=== PATIENT | male | born 1985 | race Caucasian/White ===

== ENCOUNTER 2024-09-05 17:44 | Emergency (ER) | payer SELFPAY ==
[2024-09-05 18:02] VITALS: BP 123/81; PULSE 105; RESP 20; TEMP 36.8; O2SAT 94; BMI 39.1
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
[2024-09-05] MEDS: METHOCARBAMOL 500MG TABLET 500 MG PO (19:12)
[2024-09-05] MEDS: ACETAMINOPHEN 500MG TAB 1000 MG PO (19:12)
[2024-09-05] MEDS: KETOROLAC 10MG TABLET 10 MG PO (19:12)
[2024-09-05 21:06] VITALS: BP 122/87; PULSE 87; RESP 20; TEMP 36.7; O2SAT 98
== END 2024-09-05 21:20 | disposition home or self-care (01) ==
PROVIDERS: Emergency Provider Emergency Medicine
DX: S80.11XA Contusion of right lower leg, initial encounter (principal); M79.604 Pain in right leg; V29.408A Other motorcycle driver injured in collision with unspecified motor vehicles in traffic accident, initial encounter; Y92.410 Unspecified street and highway as the place of occurrence of the external cause
CPT/HCPCS: 73562; 73590; 73610; 73620; 99284

== ENCOUNTER 2025-02-25 21:41 | Emergency (ER) | payer SELFPAY ==
[2025-02-25] VITALS (9 sets, daily range): BP systolic 125–159; BP diastolic 68–103; PULSE 81–112; RESP 15–22; TEMP 36.7; O2SAT 91–96; BMI 36.5
--- NOTE | 2025-02-25 22:07 | HMH.EDGENADL ---
Discharge Plan Disposition Patient Disposition: Xfer Other Referrals Follow up/Referrals: Provider,Adam, [Primary Care Provider, Medical] - See instructions Activity Restrictions/Add. Instructions Additional Instructions/Restrictions: Please proceed directly to the [facility] ER for further assessment. Clinical Impressions Clinical Impression: Hemoptysis Instructions Patient Instructions: Cough Print Language Print Language: Polish Discharge ED Provider: Marino Smith General Adult HPI <Marino Smith MD - Last Filed: 02/25/25 23:11> General Chief complaint: Cough Stated complaint: Coughing up blood Time Seen by Provider: 02/25/25 21:56 Mode of Arrival: Ambulatory Source of Information: Patient Description of Symptoms (Recalled from ER Triage Doc. by RN): pt reports for coughing up blood, pt reports this began a few days ago but resolved until yesterday. pt reports no illness, just that when he lies down it feels like he has fluid in his lungs and needs to cough, pt stated whenhe coughs it is 85% blood. pt denies seeing any blood clots. History of Present Illness HPI narrative: Aime Guzman is a 39y male with a history of hypertension not on blood thinners who presents to the emergency department for complaints of hemoptysis. Patient states that starting today, he has had 2 episodes of large-volume bright red bloody cough. He states that when he lays on his right side he feels the need to cough and has had 2 episodes of bright red blood when he coughs. He states that he does not feel short of breath and has not had chest pain. He has not been ill recently. He denies any abdominal pain or vomiting. He denies any fevers. He does smoke tobacco. 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 They also stated that he had stage II kidney disease and had some bloody urine approximately 2 to 3 years ago that has resolved. He states that he was diagnosed with IgA nephropathy. 2 to 3 years ago, he was also admitted in was told that he had a collapsed lung and underwent bronchoscopy and was told that he had crystals on his lymph nodes and asthma. He states that he was seen by police communications operator but does not know what his diagnosis is but was told that he has an autoimmune condition. He ran out of insurance approximately 2 to 3 years ago and has not been following up with anybody. He states that this is the first time that he has coughed up blood though. Related Data Allergies Allergy/AdvReac Type Severity Reaction Status Date / Time No Known Allergies Allergy Verified 09/05/24 19:10 [facility] <Marino Smith MD - Last Filed: 02/25/25 23:11> [facility] Disclaimer: The information contained in this section may have been updated after the patient was seen, as this information can be updated by other users. Social History (Updated 09/05/24 @ 21:17 by ANA CRISTINA Acevedo) Smoking Status: Current every day smoker alcohol intake: never current occupational status: employed Travel in the last 8 weeks?: None Have you lived/traveled outside [place] in past 30 days?: No Contact w/someone who lives/traveled outside US past 30 days?: No Exposure to someone with infectious disease in past 14 days?: No Do you have a fever (greater than 100.4 F or 38 C)?: No Have you tested positive for COVID-19?: No Exposed to someone with COVID-19 in past 14 days?: No Do you have a sore throat?: No Do you have a cough?: No Do you have any weakness?: No Do you have any diarrhea?: No Are you experiencing any unusual bleeding?: No Do you have any muscle aches/pain?: No Do you have any abdominal pain?: No Are you experiencing loss of taste or smell?: No <Marino Smith MD - Last Filed: 02/25/25 23:11> ROS Obtained: Yes Systems reviewed as appropriate & no additional complaints except as documented Physical Exam <Marino Smith MD - Last Filed: 02/25/25 23:11> General General appearance: alert and in no apparent distress Head Head exam: atraumatic Eye Eye exam: Present normal appearance ENT ENT exam: Present normal external ear exam Neck Neck exam: Present full ROM Chest Chest inspection: Present symmetric chest wall rise Respiratory Respiratory exam: Present normal lung sounds bilaterally; Absent respiratory distress, wheezes or stridor Cardiovascular Cardiovascular exam: Present regular rate and normal rhythm Abdominal Exam Abdominal exam: Present soft; Absent tenderness or guarding exam: Present deferred Extremities Exam Extremities exam: Present normal inspection; Absent edema Back Exam Back exam: Present normal inspection Neurological Exam Neurological exam: Present alert and oriented X3 Psychiatric Psychiatric exam: Present normal affect Skin Skin exam: Present warm and dry; Absent rash Medical Decision Making <Marino Smith MD - Last Filed: 02/25/25 23:11> Medical Records Screening: Per USPSTF and CDC recommendations, given the prevalence of disease in our region, it is our hospital?s policy to screen for HIV and viral Hepatitis for all patients aged 18 and over and those with ongoing risk factors. Enoch Inquiry Pt receiving controlled substance: No Vital Signs: 02/25/25 21:56 02/25/25 21:57 02/25/25 22:00 Temperature 98.1 F Temperature Source Oral Pulse Rate 98 H Pulse Rate [Right] 99 H Respiratory Rate 22 Blood Pressure 159/87 H Blood Pressure [Right Arm] 136/103 H Blood Pressure Mean 111 Blood Pressure Mean [Right Arm] 114 Blood Pressure Source Blood Pressure Position 02 Sat by Pulse Oximetry 96 95 Oxygen Delivery Method Room Air 02/25/25 22:00 02/25/25 22:06 02/25/25 22:28 Temperature Temperature Source Pulse Rate 103 H 99 H 96 H Pulse Rate [Right] Respiratory Rate 16 Blood Pressure 146/90 H Blood Pressure [Right Arm] Blood Pressure Mean Blood Pressure Mean [Right Arm] Blood Pressure Source Automatic Cuff Blood Pressure Position Sitting 02 Sat by Pulse Oximetry 91 L 93 L 94 L Oxygen Delivery Method Room Air 02/25/25 22:30 02/25/25 22:30 02/25/25 22:46 Temperature Temperature Source Pulse Rate 81 87 Pulse Rate [Right] Respiratory Rate Blood Pressure 155/75 H Blood Pressure [Right Arm] Blood Pressure Mean 101 Blood Pressure Mean [Right Arm] Blood Pressure Source Blood Pressure Position 02 Sat by Pulse Oximetry 96 91 L Oxygen Delivery Method 02/25/25 22:46 02/25/25 23:05 Temperature Temperature Source Pulse Rate 92 H Pulse Rate [Right] Respiratory Rate Blood Pressure 125/75 Blood Pressure [Right Arm] Blood Pressure Mean 91 Blood Pressure Mean [Right Arm] Blood Pressure Source Blood Pressure Position 02 Sat by Pulse Oximetry 96 Oxygen Delivery Method Lab Data Lab Results 02/25/25 22:10: VBG pH 7.34, VBG pCO2 39.6, VBG pO2 58.4 H, VBG HCO3 21.0 L, VBG Total CO2 22.2 L, VBG O2 Saturation 89.4 H, VBG Base Excess -4.8 L, VBG Lactic Acid 1.9 02/25/25 22:11: WBC 12.0 H, RBC 4.98, Hgb 15.8, Hct 44.6, MCV 89.6, MCH 31.7 H, MCHC 35.4, RDW 11.9, Plt Count 250, MPV 10.8 H, Neut % (Auto) 56.6, Lymph % (Auto) 31.2, [place] % (Auto) 7.4, Eos % (Auto) 3.4, Baso % (Auto) 0.8, Neut # (Auto) 6.8, Lymph # (Auto) 3.7, [place] # (Auto) 0.9, Eos # (Auto) 0.4, Baso # (Auto) 0.1, ESR 13, PT 10.6, INR 0.95, APTT 26.5, Sodium 141, Potassium 3.8, Chloride 107, Carbon Dioxide 24, Anion Gap 13.8, BUN 13, Creatinine 1.20, Estimated Creat Clear 127, Estimated GFR 67, Est GFR ( Amer) 82, Glucose 120 H, Calcium 8.7, Total Bilirubin 0.4, AST 29, ALT 29, Alkaline Phosphatase 85, Troponin I < 0.01, C-Reactive Protein 4.7 H, NT-Pro-B Natriuret Pep < 20.0, Total Protein 8.0, Albumin 4.5, Globulin 3.5 H, Albumin/Globulin Ratio 1.3, HCV Ab JADIEL w/Rflx PCR Qn Negative, HIV Ag/Ab Combo Qual Negative 02/25/25 22:28: Urine Color Yellow, Urine Appearance Clear, Urine pH 6.0, Ur Specific [place] 1.025, Urine Protein Trace, Urine Glucose (UA) Negative, Urine Ketones Trace, Urine Blood 2+ A, Urine Nitrate Negative, Urine Bilirubin Negative, Urine Urobilinogen 1.0, Ur Leukocyte Esterase Negative, Urine RBC Occasional, Urine WBC Occasional, Ur Squamous Epith Cells Occasional, Urine Mucus 1+ 02/25/25 22:11 02/25/25 22:11 Orders (Tests/Meds): ED MEDICATIONS Generic Name Dose Route Start Last Admin Trade Name Freq PRN Reason Stop Dose Admin Piperacillin Sod/Tazobactam 100 mls @ 200 mls/hr 02/26/25 00:10 Sod 4.5 gm/ Sodium Chloride IV 02/26/25 00:39 ONCE ONE Vancomycin HCl 2,250 mg/ 250 mls @ 125 mls/hr 02/26/25 00:30 Sodium Chloride IV 02/26/25 02:29 ONCE ONE Miscellaneous 1 each 02/26/25 00:15 Vancomycin Consult Request NOTAPPLIC 03/28/25 00:14 CONSULT PHARMACY JAS[facility] Discontinued Medications Generic Name Dose Route Start Last Admin Trade Name Freq PRN Reason Stop Dose Admin Iopamidol 70 ml 02/25/25 23:10 02/25/25 23:11 Iopamidol-370 (76%);100ml Bottle IV 02/25/25 23:11 70 ml ONCE ONE Administration Ondansetron HCl 4 mg 02/25/25 23:07 02/25/25 23:09 Ondansetron 4mg/2ml Vial IV 02/25/25 23:08 Not Given ONCE ONE Sodium Chloride 50 ml 02/25/25 23:10 02/25/25 23:11 0.9 % Sodium Chloride 50 Ml Vial IV 02/25/25 23:11 50 ml ONCE ONE Administration Sodium Chloride 10 ml 02/25/25 23:10 02/25/25 23:11 Sodium Chloride 0.9% 10ml Syr (Rad Only) IV 02/25/25 23:11 10 ml ONCE ONE Administration ORDERS Category Date Time Status CT angio chest PE protocol Stat Cat Scan 02/25/25 22:17 Completed BNP [NT Pro Brain Natriuretic Pep.] Stat Lab 02/25/25 22:11 Completed CBC w/Auto Diff [Complete Blood Count Auto Diff] Stat Lab 02/25/25 22:11 Completed CMP [Comprehensive Metabolic Panel] Stat Lab 02/25/25 22:11 Completed CRP [C-Reactive Protein] Stat Lab 02/25/25 22:11 Completed ESR [Erythrocyte Sedimentation Rate] Stat Lab 02/25/25 22:11 Completed HIV Combo Stat Lab 02/25/25 22:11 Completed Hepatitis C Ab Qual. W/ RFX Stat Lab 02/25/25 22:11 Completed PT INR [Prothrombin Time INR] Stat Lab 02/25/25 22:11 Completed PTT [Activated Partial Thrombo Time] Stat Lab 02/25/25 22:11 Completed Troponin I Q3H Lab 02/26/25 01:15 Ordered Troponin I Q3H Lab 02/26/25 04:15 Ordered Troponin I Stat Lab 02/25/25 22:11 Completed UA [Urinalysis and Microscopic] Stat Lab 02/25/25 22:28 Completed VBG [Venous Blood Gas] Stat RT 02/25/25 22:10 Completed Medical Decision Narrative: Aime Guzman is a 39y male with a history of hypertension not on blood thinners who presents to the emergency department for complaints of hemoptysis. Patient states that starting today, he has had 2 episodes of large-volume bright red bloody cough. He states that when he lays on his right side he feels the need to cough and has had 2 episodes of bright red blood when he coughs. He states that he does not feel short of breath and has not had chest pain. He has not been ill recently. He denies any abdominal pain or vomiting. He denies any fevers. He does smoke tobacco. 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 They also stated that he had stage II kidney disease and had some bloody urine approximately 2 to 3 years ago that has resolved. He states that he was diagnosed with IgA nephropathy. 2 to 3 years ago, he was also admitted in was told that he had a collapsed lung and underwent bronchoscopy and was told that he had crystals on his lymph nodes and asthma. He states that he was seen by police communications operator but does not know what his diagnosis is but was told that he has an autoimmune condition. He ran out of insurance approximately 2 to 3 years ago and has not been following up with anybody. He states that this is the first time that he has coughed up blood though. On arrival, patient is tachycardic with a heart rate of 99, elevated blood pressure at 139/103, afebrile, 96% SpO2 on room air. Physical exam, as stated above, and is overall well-appearing male in no distress. Cardiopulmonary exams unremarkable without murmurs or rubs. No wheezing, rales or rhonchi. Abdomen is soft, nontender nondistended. He has no peripheral edema in his lower extremities. He has no rash. Differential diagnosis includes, but is not limited to: Pulmonary embolism, bronchitis, vasculitis (such as granulomatosis with polyangiitis), pneumonia, vascular malformation, fistula formation, ACS, among others. The most morbid conditions were considered and workup was based on these. Workup in the emergency department included: CT angio pulmonary embolism protocol, CBC, CMP, PT/INR, PTT, VBG with lactate, EKG, BNP, CRP, ESR, urinalysis EKG showed normal sinus rhythm. No ST elevation or depression. No T wave inversions. QTc normal at 387 At this time, patient's workup shows mild leukocytosis with white blood cell count of 12.0 but no neutrophilia. Hemoglobin within normal limits at 15.8, hematocrit 44.6. Platelets normal at 250. VBG unremarkable nonactionable with pH of 7.34, lactate normal at 1.9 pCO2 normal at 39.6. Bicarb mildly low at 22.2. Urinalysis shows 2+ blood on dipstick but nitrite negative and leukocyte esterase negative. ESR within normal limits. Urine micro with occasional RBCs, occasional white blood cells. At this time, the remainder of patient's workup is pending. Patient's care was transferred to the oncoming physician, Dr. Sosa, for continued management and ultimate disposition. <Jorge Sosa MD - Last Filed: 02/26/25 00:25> Vital Signs: 02/25/25 21:56 02/25/25 21:57 02/25/25 22:00 Temperature 98.1 F Temperature Source Oral Pulse Rate 98 H Pulse Rate [Right] 99 H Respiratory Rate 22 Blood Pressure 159/87 H Blood Pressure [Right Arm] 136/103 H Blood Pressure Mean 111 Blood Pressure Mean [Right Arm] 114 Blood Pressure Source Blood Pressure Position 02 Sat by Pulse Oximetry 96 95 Oxygen Delivery Method Room Air 02/25/25 22:00 02/25/25 22:06 02/25/25 22:28 Temperature Temperature Source Pulse Rate 103 H 99 H 96 H Pulse Rate [Right] Respiratory Rate 16 Blood Pressure 146/90 H Blood Pressure [Right Arm] Blood Pressure Mean Blood Pressure Mean [Right Arm] Blood Pressure Source Automatic Cuff Blood Pressure Position Sitting 02 Sat by Pulse Oximetry 91 L 93 L 94 L Oxygen Delivery Method Room Air 02/25/25 22:30 02/25/25 22:30 02/25/25 22:46 Temperature Temperature Source Pulse Rate 81 87 Pulse Rate [Right] Respiratory Rate Blood Pressure 155/75 H Blood Pressure [Right Arm] Blood Pressure Mean 101 Blood Pressure Mean [Right Arm] Blood Pressure Source Blood Pressure Position 02 Sat by Pulse Oximetry 96 91 L Oxygen Delivery Method 02/25/25 22:46 02/25/25 23:05 Temperature Temperature Source Pulse Rate 92 H Pulse Rate [Right] Respiratory Rate Blood Pressure 125/75 Blood Pressure [Right Arm] Blood Pressure Mean 91 Blood Pressure Mean [Right Arm] Blood Pressure Source Blood Pressure Position 02 Sat by Pulse Oximetry 96 Oxygen Delivery Method Lab Data Lab Results 02/25/25 22:10: VBG pH 7.34, VBG pCO2 39.6, VBG pO2 58.4 H, VBG HCO3 21.0 L, VBG Total CO2 22.2 L, VBG O2 Saturation 89.4 H, VBG Base Excess -4.8 L, VBG Lactic Acid 1.9 02/25/25 22:11: WBC 12.0 H, RBC 4.98, Hgb 15.8, Hct 44.6, MCV 89.6, MCH 31.7 H, MCHC 35.4, RDW 11.9, Plt Count 250, MPV 10.8 H, Neut % (Auto) 56.6, Lymph % (Auto) 31.2, [place] % (Auto) 7.4, Eos % (Auto) 3.4, Baso % (Auto) 0.8, Neut # (Auto) 6.8, Lymph # (Auto) 3.7, [place] # (Auto) 0.9, Eos # (Auto) 0.4, Baso # (Auto) 0.1, ESR 13, PT 10.6, INR 0.95, APTT 26.5, Sodium 141, Potassium 3.8, Chloride 107, Carbon Dioxide 24, Anion Gap 13.8, BUN 13, Creatinine 1.20, Estimated Creat Clear 127, Estimated GFR 67, Est GFR ( Amer) 82, Glucose 120 H, Calcium 8.7, Total Bilirubin 0.4, AST 29, ALT 29, Alkaline Phosphatase 85, Troponin I < 0.01, C-Reactive Protein 4.7 H, NT-Pro-B Natriuret Pep < 20.0, Total Protein 8.0, Albumin 4.5, Globulin 3.5 H, Albumin/Globulin Ratio 1.3, HCV Ab JADIEL w/Rflx PCR Qn Negative, HIV Ag/Ab Combo Qual Negative 02/25/25 22:28: Urine Color Yellow, Urine Appearance Clear, Urine pH 6.0, Ur Specific [place] 1.025, Urine Protein Trace, Urine Glucose (UA) Negative, Urine Ketones Trace, Urine Blood 2+ A, Urine Nitrate Negative, Urine Bilirubin Negative, Urine Urobilinogen 1.0, Ur Leukocyte Esterase Negative, Urine RBC Occasional, Urine WBC Occasional, Ur Squamous Epith Cells Occasional, Urine Mucus 1+ Orders (Tests/Meds): ED MEDICATIONS Generic Name Dose Route Start Last Admin Trade Name Freq PRN Reason Stop Dose Admin Piperacillin Sod/Tazobactam 100 mls @ 200 mls/hr 02/26/25 00:10 Sod 4.5 gm/ Sodium Chloride IV 02/26/25 00:39 ONCE ONE Vancomycin HCl 2,250 mg/ 250 mls @ 125 mls/hr 02/26/25 00:30 Sodium Chloride IV 02/26/25 02:29 ONCE ONE Miscellaneous 1 each 02/26/25 00:15 Vancomycin Consult Request NOTAPPLIC 03/28/25 00:14 CONSULT PHARMACY [facility] Discontinued Medications Generic Name Dose Route Start Last Admin Trade Name Freq PRN Reason Stop Dose Admin Iopamidol 70 ml 02/25/25 23:10 02/25/25 23:11 Iopamidol-370 (76%);100ml Bottle IV 02/25/25 23:11 70 ml ONCE ONE Administration Ondansetron HCl 4 mg 02/25/25 23:07 02/25/25 23:09 Ondansetron 4mg/2ml Vial IV 02/25/25 23:08 Not Given ONCE ONE Sodium Chloride 50 ml 02/25/25 23:10 02/25/25 23:11 0.9 % Sodium Chloride 50 Ml Vial IV 02/25/25 23:11 50 ml ONCE ONE Administration Sodium Chloride 10 ml 02/25/25 23:10 02/25/25 23:11 Sodium Chloride 0.9% 10ml Syr (Rad Only) IV 02/25/25 23:11 10 ml ONCE ONE Administration ORDERS Category Date Time Status CT angio chest PE protocol Stat Cat Scan 02/25/25 22:17 Completed BNP [NT Pro Brain Natriuretic Pep.] Stat Lab 02/25/25 22:11 Completed CBC w/Auto Diff [Complete Blood Count Auto Diff] Stat Lab 02/25/25 22:11 Completed CMP [Comprehensive Metabolic Panel] Stat Lab 02/25/25 22:11 Completed CRP [C-Reactive Protein] Stat Lab 02/25/25 22:11 Completed ESR [Erythrocyte Sedimentation Rate] Stat Lab 02/25/25 22:11 Completed HIV Combo Stat Lab 02/25/25 22:11 Completed Hepatitis C Ab Qual. W/ RFX Stat Lab 02/25/25 22:11 Completed PT INR [Prothrombin Time INR] Stat Lab 02/25/25 22:11 Completed PTT [Activated Partial Thrombo Time] Stat Lab 02/25/25 22:11 Completed Troponin I Q3H Lab 02/26/25 01:15 Ordered Troponin I Q3H Lab 02/26/25 04:15 Ordered Troponin I Stat Lab 02/25/25 22:11 Completed UA [Urinalysis and Microscopic] Stat Lab 02/25/25 22:28 Completed VBG [Venous Blood Gas] Stat RT 02/25/25 22:10 Completed Medical Decision Narrative: Aime Guzman is a 39y male with a history of hypertension not on blood thinners who presents to the emergency department for complaints of hemoptysis. Patient states that starting today, he has had 2 episodes of large-volume bright red bloody cough. He states that when he lays on his right side he feels the need to cough and has had 2 episodes of bright red blood when he coughs. He states that he does not feel short of breath and has not had chest pain. He has not been ill recently. He denies any abdominal pain or vomiting. He denies any fevers. He does smoke tobacco. 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 They also stated that he had stage II kidney disease and had some bloody urine approximately 2 to 3 years ago that has resolved. He states that he was diagnosed with IgA nephropathy. 2 to 3 years ago, he was also admitted in was told that he had a collapsed lung and underwent bronchoscopy and was told that he had crystals on his lymph nodes and asthma. He states that he was seen by police communications operator but does not know what his diagnosis is but was told that he has an autoimmune condition. He ran out of insurance approximately 2 to 3 years ago and has not been following up with anybody. He states that this is the first time that he has coughed up blood though. On arrival, patient is tachycardic with a heart rate of 99, elevated blood pressure at 139/103, afebrile, 96% SpO2 on room air. Physical exam, as stated above, and is overall well-appearing male in no distress. Cardiopulmonary exams unremarkable without murmurs or rubs. No wheezing, rales or rhonchi. Abdomen is soft, nontender nondistended. He has no peripheral edema in his lower extremities. He has no rash. Differential diagnosis includes, but is not limited to: Pulmonary embolism, bronchitis, vasculitis (such as granulomatosis with polyangiitis), pneumonia, vascular malformation, fistula formation, ACS, among others. The most morbid conditions were considered and workup was based on these. Workup in the emergency department included: CT angio pulmonary embolism protocol, CBC, CMP, PT/INR, PTT, VBG with lactate, EKG, BNP, CRP, ESR, urinalysis EKG showed normal sinus rhythm. No ST elevation or depression. No T wave inversions. QTc normal at 387 At this time, patient's workup shows mild leukocytosis with white blood cell count of 12.0 but no neutrophilia. Hemoglobin within normal limits at 15.8, hematocrit 44.6. Platelets normal at 250. VBG unremarkable nonactionable with pH of 7.34, lactate normal at 1.9 pCO2 normal at 39.6. Bicarb mildly low at 22.2. Urinalysis shows 2+ blood on dipstick but nitrite negative and leukocyte esterase negative. ESR within normal limits. Urine micro with occasional RBCs, occasional white blood cells. At this time, the remainder of patient's workup is pending. Patient's care was transferred to the oncoming physician, Dr. Sosa, for continued management and ultimate disposition. Sheila JOY: I assumed care of the patient at the time of handoff from the prior provider. CT imaging was independently interpreted by me. He has a large calcified lymph nodes, extrinsic compression of the right pulmonary artery, scarring etc. 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 We we will start him on Vancomycin and Zosyn for empiric treatment of possible pneumonia. I called and spoke with Dr. Johnston at the [facility] who accepted the patient in transfer to the [facility] for further evaluation of possible vasculitis. Critical Care <Marino Smith MD - Last Filed: 02/25/25 23:11> Critical Care Time Critical Care Time: No
--- NOTE | 2025-02-25 22:14 | ECG_ITS ---
APPROVED REPORT Exam: Resting ECG HR:94 bpm ECG Measurements Heart Rate 94 AXES OH 167 P 64 QRSd 97 QRS 28 QT 335 T 91 QTc 387 Conclusion SINUS RHYTHM NONSPECIFIC T-WAVE ABNORMALITY ABNORMAL ECG UNCONFIRMED REPORT Electronically signed by : MICHELINE HAINES, 02/28/2025 02:20:42
--- NOTE | 2025-02-25 22:17 | CT_ITS ---
PROCEDURE INFORMATION: Exam: CTA Chest With Contrast Exam date and time: 02/25/2025 10:57 PM Age: 39 years old Clinical indication: Other: Hemoptysis; Additional info: Hemoptysis, HX of autoimmune disease TECHNIQUE: Imaging protocol: Computed tomographic angiography of the chest with contrast. Exam focused on the arteries. 3D rendering (Not supervised by radiologist): MIP and/or 3D reconstructed images were created by the technologist. Radiation optimization: All CT scans at this facility use at least one of these dose optimization techniques: automated exposure control; mA and/or kV adjustment per patient size (includes targeted exams where dose is matched to clinical indication); or iterative reconstruction. Contrast material: ISOVUE; Contrast volume: 70 ml; Contrast route: INTRAVENOUS (IV); COMPARISON: No relevant prior studies available. 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 No evidence of acute pulmonary embolus. Aorta: Unremarkable. No aortic aneurysm. No aortic dissection. Lungs: Calcified granuloma is present in the right middle lobe. Subpleural parenchymal opacity with coarse calcification in the right lower lobe. Findings are compatible with prior granulomatous disease. Bandlike opacities with volume loss throughout the right lower lung compatible with chronic scarring/atelectasis. Mild focal scarring/atelectasis in the lingula. Left lung is otherwise clear. Pleural spaces: Mild focal pleural thickening in the posterior right lower chest. No free pleural fluid. No pneumothorax. Heart: Unremarkable. No cardiomegaly. No pericardial effusion. Lymph nodes: Moderate right hilar and subcarinal lymphadenopathy which exhibits coarse calcification, suggesting sequela of prior granulomatous disease or possibly previously treated malignancy. Bones/joints: Unremarkable. No acute fracture. Soft tissues: Unremarkable. 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 This presumably represents sequela of prior granulomatous infection and/or surgery. Treated malignancy could have a similar appearance. If there is clinical concern for active malignancy or other acute pathology, correlation with the prior studies or follow-up PET/CT scan would be recommended
[2025-02-25 22:24] LABS: Lactate Venous 1.9 mmol/L (0.4-2.0); VBG HCO3 21.0 mmol/L (23-30); VBG PCO2 39.6 mmol/L (35-51); VBG PH 7.34 mmol/L (7.31-7.41); VBG PO2 58.4 mmol/L (28-40)
[2025-02-25 22:27] LABS: Hematocrit 44.6 % (42.0-52.0); Hemoglobin 15.8 g/dL (14.1-18.0); Immature Granulocytes % 0.6 %; Mean Corpuscular HGB Conc 35.4 g/dL (31.8-35.4); Mean Corpuscular Hemoglobin 31.7 pg (27.0-31.2); Mean Corpuscular Volume 89.6 fl (80-94); Nucleated Red Blood Cells % 0 %; Platelet Count 250 K/mm3 (142-424); Red Blood Count 4.98 M/mm3 (4.60-6.20); Red Cell Distribution Width-SD 38.7 fL; White Blood Count 12.0 K/mm3 (4.8-10.8)
[2025-02-25 22:37] LABS: Microscopic, Urine URINE MICROSCOPIC (MICROSCOPIC)
[2025-02-25 22:38] LABS: Bilirubin,Urine Negative (Negative); Color,Urine YELLOW (Yellow); Glucose,Urine (UA) Negative (Negative); Ketones,Urine TRACE (Negative); Leukocyte Esterase,Urine Negative (Negative); PH,Urine 6.0 (5.0-8.5); Protein,Urine TRACE (Negative); Specific Gravity, Urine 1.025 (1.005-1.030); Urobilinogen,Urine 1.0 EU/dl (0.2)
[2025-02-25 22:44] LABS: Alanine Aminotransferase 29 U/L (12-78); Albumin Level 4.5 g/dl (3.5-5.0); Albumin/Globulin Ratio 1.3 (1.1-1.8); Alkaline Phosphatase 85 U/L (38-126); Anion Gap 13.8 mEq/L (5-15); Aspartate Amino Transferase 29 U/L (17-59); Bilirubin,Total 0.4 mg/dl (0.2-1.3); Blood Urea Nitrogen 13 mg/dl (9-20); Calcium 8.7 mg/dl (8.4-10.2); Carbon Dioxide 24 mmol/L (22.0-30.0); Chloride 107 mmol/L (98-107); Creatinine Clearance Estimated 127 mL/min (50-200); Creatinine,Serum 1.20 mg/dl (0.66-1.25); Estimated Glomerular Filt Rate 67 ml/min (>60); GFR (African American) 82 ML/MIN (>60); Globulin 3.5 g/dL (1.3-3.2); Glucose 120 mg/dl (74-100); Potassium 3.8 mmoL/L (3.5-5.1); Sodium 141 mmol/L (136-145); Total Protein,Serum 8.0 g/dl (6.3-8.2)
[2025-02-25 22:49] LABS: C-Reactive Protein 4.7 mg/L (0-4)
[2025-02-25 22:51] LABS: Mucus,Urine 1+ /lpf; RBC,Urine Occasional #/hpf (0-3); Squamous Epithelial Cell,Urine Occasional #/hpf (0-5); WBC,Urine Occasional #/hpf (0-3)
[2025-02-25 22:56] LABS: NT Pro Brain Natriuretic Pep. < 20.0 pg/mL (0-125)
[2025-02-25 22:57] LABS: Activated Partial Thrombo Time 26.5 seconds (22.8-30.6); INR 0.95 (0.9-1.1); Prothrombin Time 10.6 seconds (10.1-12.5)
[2025-02-25 23:06] LABS: Troponin I < 0.01 ng/ml (0.00-0.034)
[2025-02-25] MEDS: IOPAMIDOL-370 (76%);100ML BOTTLE 70 ML IV (23:11)
[2025-02-25] MEDS: 0.9 % SODIUM CHLORIDE 50 ML VIAL IV (23:11)
[2025-02-25] MEDS: SODIUM CHLORIDE 0.9% 10ML SYR (RAD ONLY) 10 ML IV (23:11)
[2025-02-25 23:30] LABS: Hepatitis C Ab Qual. W/ RFX NEGATIVE (Negative)
[2025-02-26] VITALS: BP 131/90; PULSE 111; RESP 16; O2SAT 91
[2025-02-26] MEDS: PIPERACILLIN/TAZO 4.5 GM in 0.9 % SODIUM CHLORIDE 100 ML IV (00:29)
[2025-02-26 00:54] VITALS: BP 119/69; PULSE 82; RESP 16; TEMP 36.7; O2SAT 95
[2025-02-26 01:01] VITALS: BP 107/64; PULSE 70; RESP 15; TEMP 36.6; O2SAT 95
== END 2025-02-26 01:19 | disposition other institution (70) ==
PROVIDERS: Emergency Provider Student in an Organized Health Care Education/Training Program
DX: R04.2 Hemoptysis (principal); I89.9 Noninfective disorder of lymphatic vessels and lymph nodes, unspecified; I28.9 Disease of pulmonary vessels, unspecified; I10 Essential (primary) hypertension; F17.210 Nicotine dependence, cigarettes, uncomplicated
CPT/HCPCS: 71275; 80053; 81001; 82803; 83880; 84484; 85025; 85610; 85651; 85730; 86140; 86803; 87389; 93005; 96365; 99285; J2543; Q9967